=== PATIENT | female | born 1985 | race Caucasian/White ===

== ENCOUNTER 2022-01-31 13:04 | Emergency (ER) | payer OTHER ==
[2022-01-31 13:13] VITALS: BP 109/76; PULSE 89; TEMP 98; BMI 22.6
== END 2022-01-31 15:50 | disposition home or self-care (01) ==
LOC: JERFT 13:04 → JER 13:04 → JERFT 15:50
DX: S92.901A Unspecified fracture of right foot, initial encounter for closed fracture (principal)
CPT/HCPCS: 73630-TC-RT-FY; 99284-25

== ENCOUNTER 2025-02-25 09:44 | Emergency (ER) | payer OTHER ==
[2025-02-25 09:53] VITALS: TEMP 98.4; BMI 23.6
[2025-02-25 11:43] LABS: ABSOLUTE IMMATURE GRANULOCYTES 0.02 x10^3/uL (0.0-0.031); BASOPHILS # 0.03 x10^3/uL (0.01-0.08); EOSINOPHIL % 0.4 % (0.7-5.8); EOSINOPHILS # 0.03 x10^3/uL (0.04-0.36); HEMATOCRIT 40.1 % (34.1-44.9); HEMOGLOBIN 12.8 g/dL (11.2-15.7); MCHC 31.9 g/dl (32.2-35.5); MEAN CELL VOLUME 83.2 fl (79.4-94.8); MONOCYTE # 0.32 x10^3/uL (0.24-0.86); MONOCYTE % 4.1 % (4.7-12.5); PLATELET COUNT 459 x10^3/uL (182-369); RDW 13.7 % (12.1-16.8)
[2025-02-25 12:14] LABS: POTASSIUM 3.9 mmol/L (3.5-5.1)
[2025-02-25 12:16] LABS: ALBUMIN 4.1 g/dl (3.4-5.0); BLOOD UREA NITROGEN 10.8 mg/dL (7-18); CALCIUM 9.9 mg/dL (8.5-10.1); MAGNESIUM 2.4 mg/dL (1.8-2.4)
[2025-02-25 12:19] LABS: CREATININE 0.8 mg/dL (0.55-1.3)
[2025-02-25 12:21] LABS: BILIRUBIN,TOTAL 0.7 mg/dL (0.2-1); TOT PROT 7.7 g/dl (6.4-8.2)
[2025-02-25 13:04] VITALS: BP 117/83; PULSE 79; RESP 18
== END 2025-02-25 13:23 | disposition home or self-care (01) ==
LOC: JER 09:44
DX: F41.9 Anxiety disorder, unspecified (principal); R07.89 Other chest pain; R20.0 Anesthesia of skin; R20.2 Paresthesia of skin; R06.02 Shortness of breath
CPT/HCPCS: 36415; 71046-TC-FY; 80053; 83735; 84443; 84484; 85025; 93005; 93010; 99285-25